=== PATIENT | female | born 1935 | race Caucasian/White ===

== ENCOUNTER 2017-08-07 04:39 | Emergency (ER) | payer MEDICARE ==
[~2017-08-07] VITALS: Ht 172.7 cm; Wt 90.9 kg
[2017-08-07 05:57] LABS: ALBUMIN 4.3 g/dL (3.2-5.0); ALKALINE PHOSPHATASE 170 u/l (38-126); AMYLASE 52 u/l (30-110); ANION GAP 18 (6-22 (CALC)); BILIRUBIN, TOTAL 0.7 mg/dL (0.0-1.4); BUN 14 mg/dL (8-23); BUN/CREATININE RATIO 24 (12-20 (CALC)); CALCIUM 9.2 mg/dL (8.4-10.2); CARBON DIOXIDE 20 mmol/l (22-30); CHLORIDE 102 mmol/l (95-108); CREATININE 0.6 mg/dL (0.5-1.0); GFR > 60 ML/MIN (>=60 (CALC)); GFR FOR AFR.AMER. > 60 ML/MIN (>=60 (CALC)); GLUCOSE 354 mg/dL (82-115); LIPASE 189 u/l (23-300); POTASSIUM 4.6 mmol/l (3.5-5.1); SGOT/AST 32 u/l (9-36); SGPT/ALT 35 u/l (11-66); SODIUM 135 mmol/l (137-146); TOTAL PROTEIN 7.5 g/dL (6.3-8.2)
[2017-08-07 06:01] LABS: ACT PARTIAL THROMBO TIME 26.1 SECONDS (20.0-32.5); INTERNATIONAL NORMALIZED RATIO 0.9 RATIO (0.7-1.3); PROTHROMBIN TIME 10.4 SECONDS (9.0-12.5)
[2017-08-07 06:06] LABS: HEMATOCRIT 42.9 % (37.0-47.0); HEMOGLOBIN 14.8 g/dl (12.0-16.0); IMMATURE GRANULOCYTES 0.4 % (0.0-1.0); MEAN CELL VOLUME 90.7 fL CALC (80.0-100.0); MEAN CORPUSCULAR HGB 31.3 pG CALC (26.0-32.0); MEAN CORPUSCULAR HGB CONC 34.5 g/L CALC (32.0-36.0); NEUT# 5.41 thou/uL (2.00-7.15); RED BLOOD COUNT 4.73 mill/uL (4.20-5.60); RED CELL DISTRI WIDTH 12.4 % (11.5-15.5)
[2017-08-07 06:09] LABS: MYOGLOBIN 65 ng/mL (0 - 62)
[2017-08-07 06:17] LABS: URINE BILIRUBIN - DIPSTICK NEGATIVE (NEGATIVE); URINE BLOOD DIPSTICK NEGATIVE (NEGATIVE); URINE COLOR YELLOW; URINE GLUCOSE - DIPSTICK >=1000 mg/dL (NEGATIVE); URINE KETONE NEGATIVE (NEGATIVE); URINE LEUK ESTERASE NEGATIVE (NEGATIVE); URINE NITRITE - DIPSTICK NEGATIVE (Negative); URINE PH 5.5 (4.5-8.0); URINE PROTEIN - DIPSTICK NEGATIVE (NEG-TRACE); URINE SPECIFIC GRAVITY <=1.005; URINE UROBILINOGEN - DIPSTICK 0.2 E.U./dL (0.2)
[2017-08-07 06:25] LABS: URINE CLARITY CLEAR
[2017-08-07 07:00] VITALS: BP 171/79
== END 2017-08-07 07:00 | disposition left against medical advice (07) ==
LOC: ED 04:39
PROVIDERS: Emergency Medicine
DX: R10.13 Epigastric pain (principal); R42 Dizziness and giddiness; E11.621 Type 2 diabetes mellitus with foot ulcer; E11.65 Type 2 diabetes mellitus with hyperglycemia; I10 Essential (primary) hypertension; R94.31 Abnormal electrocardiogram [ECG] [EKG]; Z91.19 Patient's noncompliance with other medical treatment and regimen; B95.7 Other staphylococcus as the cause of diseases classified elsewhere
CPT/HCPCS: S0164

== ENCOUNTER 2021-02-02 12:06 | Emergency (ER) | payer MEDICARE, OTHER ==
[~2021-02-02] VITALS: Ht 172.7 cm; Wt 86.3 kg
[2021-02-02 13:17] LABS: ALBUMIN 4.1 g/dL (3.2-5.0); ALKALINE PHOSPHATASE 131 u/l (38-126); ANION GAP 13 (6-22 (CALC)); BILIRUBIN, TOTAL 0.7 mg/dL (0.0-1.4); BUN 13 mg/dL (8-23); BUN/CREATININE RATIO 30 (12-20 (CALC)); CARBON DIOXIDE 21 mmol/l (22-30); CHLORIDE 103 mmol/l (95-108); CREATININE 0.4 mg/dL (0.5-1.0); GFR > 60 ML/MIN (>=60 (CALC)); GFR FOR AFR.AMER. > 60 ML/MIN (>=60 (CALC)); POTASSIUM 4.1 mmol/l (3.5-5.1); SGOT/AST 30 u/l (9-36); SODIUM 133 mmol/l (137-146); TOTAL PROTEIN 7.8 g/dL (6.3-8.2)
[2021-02-02 13:28] VITALS: BP 197/95
[2021-02-02 13:31] LABS: HEMATOCRIT 41.9 % (37.0-47.0); HEMOGLOBIN 13.7 g/dl (12.0-16.0); IMMATURE GRANULOCYTES 0.4 % (0.0-5.0); MEAN CELL VOLUME 92.1 fL CALC (80.0-100.0); MEAN CORPUSCULAR HGB 30.1 pG CALC (26.0-32.0); MEAN CORPUSCULAR HGB CONC 32.7 g/dL CAL (32.0-36.0); NEUT# 6.72 thou/uL (2.00-7.15); RED BLOOD COUNT 4.55 mill/uL (4.20-5.60); RED CELL DISTRI WIDTH 13.2 % (11.5-15.5)
== END 2021-02-02 13:29 | disposition short-term general hospital (02) ==
LOC: ED 12:06
PROVIDERS: Emergency Medicine
DX: S00.03XA Contusion of scalp, initial encounter (principal); I16.0 Hypertensive urgency; I69.398 Other sequelae of cerebral infarction; R26.89 Other abnormalities of gait and mobility; E11.9 Type 2 diabetes mellitus without complications; W18.30XA Fall on same level, unspecified, initial encounter; Y93.E2 Activity, laundry; Y92.009 Unspecified place in unspecified non-institutional (private) residence as the place of occurrence of the external cause

== ENCOUNTER 2022-06-03 14:29 | Emergency (ER) | payer MEDICARE, OTHER ==
[2022-06-03] VITALS (9 sets, daily range): BP systolic 123–171; BP diastolic 63–71
[~2022-06-03] VITALS: Ht 172.7 cm; Wt 93.2 kg
[2022-06-03] MEDS ORDERED: CEPHALEXIN500 MG PO (16:31)
[2022-06-04] MEDS ORDERED: CITRATE OF MEGNESIA PO (18:37)
[2022-06-04] MEDS ORDERED: ONDANSETRON4 MG PO (18:37)
== END 2022-06-03 17:59 | disposition home or self-care (01) ==
LOC: ED 14:29
PROC: 0HQ1XZZ Repair Face Skin, External Approach (ICD-10-PCS; principal; 2022-06-03)
DX: S01.81XA Laceration without foreign body of other part of head, initial encounter (principal); E11.9 Type 2 diabetes mellitus without complications; W01.0XXA Fall on same level from slipping, tripping and stumbling without subsequent striking against object, initial encounter; Y92.009 Unspecified place in unspecified non-institutional (private) residence as the place of occurrence of the external cause; Z86.73 Personal history of transient ischemic attack (TIA), and cerebral infarction without residual deficits

== ENCOUNTER 2022-06-04 14:48 | Emergency (ER) | payer MEDICARE, OTHER ==
[~2022-06-04] VITALS: Ht 172.7 cm; Wt 81.8 kg
[~2022-06-04 14:48] MED LIST: CEPHALEXIN500 MG PO
[2022-06-04 15:47] LABS: HEMATOCRIT 36.9 % (37.0-47.0); HEMOGLOBIN 12.4 g/dl (12.0-16.0); IMMATURE GRANULOCYTES 0.1 % (0.0-5.0); MEAN CELL VOLUME 92.3 fL CALC (80.0-100.0); MEAN CORPUSCULAR HGB CONC 33.6 g/dL CAL (32.0-36.0); NEUT# 5.35 thou/uL (2.00-7.15); RED CELL DISTRI WIDTH 13.1 % (11.5-15.5)
[2022-06-04 16:04] LABS: ALBUMIN 3.7 g/dL (3.2-5.0); ALKALINE PHOSPHATASE 99 u/l (38-126); ANION GAP 13 (6-22 (CALC)); BUN 18 mg/dL (8-23); BUN/CREATININE RATIO 25 (12-20 (CALC)); CARBON DIOXIDE 22 mmol/l (22-30); CHLORIDE 98 mmol/l (95-108); CREATININE 0.7 mg/dL (0.5-1.0); GFR FOR AFR.AMER. > 60 ML/MIN (>=60 (CALC)); GFR OTHER RACES > 60 ML/MIN (>=60 (CALC)); LIPASE 36 u/l (23-300); SGOT/AST 29 u/l (9-36); SODIUM 128 mmol/l (137-146); TOTAL PROTEIN 6.5 g/dL (6.3-8.2)
[2022-06-04 16:09] LABS: BILIRUBIN, TOTAL 0.4 mg/dL (0.0-1.4)
[2022-06-04] MEDS ORDERED: ONDANSETRON4 MG PO (18:37)
[2022-06-04] MEDS ORDERED: CITRATE OF MEGNESIA PO (18:37)
[2022-06-04 20:26] VITALS: BP 191/65
== END 2022-06-04 20:26 | disposition home or self-care (01) ==
LOC: ED 14:48
PROVIDERS: Family Medicine
DX: R11.2 Nausea with vomiting, unspecified (principal); K59.00 Constipation, unspecified; E11.9 Type 2 diabetes mellitus without complications; Z86.73 Personal history of transient ischemic attack (TIA), and cerebral infarction without residual deficits

== ENCOUNTER 2022-06-12 18:11 | Observation (INO) | payer MEDICARE, OTHER ==
--- NOTE | 2022-06-11 23:15 | NUR ---
87 y/o female pt received from ER via stretcher accompanied by RN. O/A to unit, pt awake, alert and oriented x3 but [place]. Pt noted to have faded periorbital bruising around R eye and sutures to Rt eyebrow. Pt states she had a fall about a week ago. Pt oriented to room, environment and call system. Pt placed on falls precautions and bed alarm engaged. Will monitor.
[2022-06-12] VITALS (16 sets, daily range): BP systolic 165–222; BP diastolic 60–132
[~2022-06-12] VITALS: Ht 172.7 cm; Wt 82.6 kg
[~2022-06-12 18:11] MED LIST changes: +CITRATE OF MEGNESIA PO; +ONDANSETRON4 MG PO
--- NOTE | 2022-06-12 18:29 | NUR ---
PATIENT STATES SHE IS ONLY ON INSULIN AND TAKES TWO UNIT IN THE MORNING AND TWO UNITS AT NIGHT , DENIES TAKING ANY OTHER MEDICATIONS. PATIENT PRESENT TO ED WITH NAUSEA VOMITING ABDOMINAL CRAMPING VIA EMS WAS GIVEN 4 MG OF ZOFRAN AND SALINE 22G IV LEFT HAND WAS PLACED BY EMS
--- NOTE | 2022-06-12 18:45 | NUR ---
PATIENT BLOOD SUGAR 162 , ER md MADE AWARE , . dOCTOR STATES TO HOLD OFF ON THAT INSULIN AND WAIT FOR THE BLOOD GLUCOSE FROM THE LAB
[2022-06-12 19:05] LABS: HEMATOCRIT 39.9 % (37.0-47.0); HEMOGLOBIN 13.7 g/dl (12.0-16.0); IMMATURE GRANULOCYTES 0.3 % (0.0-5.0); MEAN CELL VOLUME 89.7 fL CALC (80.0-100.0); MEAN CORPUSCULAR HGB 30.8 pG CALC (26.0-32.0); MEAN CORPUSCULAR HGB CONC 34.3 g/dL CAL (32.0-36.0); NEUT# 4.66 thou/uL (2.00-7.15); RED BLOOD COUNT 4.45 mill/uL (4.20-5.60); RED CELL DISTRI WIDTH 12.8 % (11.5-15.5)
[2022-06-12 19:13] LABS: LIPASE 73 u/l (23-300)
[2022-06-12 19:30] LABS: MYOGLOBIN 63 ng/mL (0 - 62)
[2022-06-12 19:54] LABS: ALBUMIN 4.1 g/dL (3.2-5.0); ALKALINE PHOSPHATASE 109 u/l (38-126); ANION GAP 15 (6-22 (CALC)); BUN 10 mg/dL (8-23); BUN/CREATININE RATIO 19 (12-20 (CALC)); CARBON DIOXIDE 20 mmol/l (22-30); CHLORIDE 101 mmol/l (95-108); CREATININE 0.5 mg/dL (0.5-1.0); GFR FOR AFR.AMER. > 60 ML/MIN (>=60 (CALC)); GFR OTHER RACES > 60 ML/MIN (>=60 (CALC)); POTASSIUM 3.5 mmol/l (3.5-5.1); SGOT/AST 37 u/l (9-36); SODIUM 133 mmol/l (137-146); TOTAL PROTEIN 7.2 g/dL (6.3-8.2)
[2022-06-12 20:01] LABS: BILIRUBIN, TOTAL 0.6 mg/dL (0.0-1.4)
[2022-06-12 21:11] LABS: URINE BILIRUBIN - DIPSTICK NEGATIVE (NEGATIVE); URINE BLOOD DIPSTICK NEGATIVE (NEGATIVE); URINE COLOR YELLOW; URINE GLUCOSE - DIPSTICK NEGATIVE (NEGATIVE); URINE KETONE TRACE mg/dL (NEGATIVE); URINE LEUK ESTERASE NEGATIVE (NEGATIVE); URINE PH 6.5 (4.5-8.0); URINE PROTEIN - DIPSTICK NEGATIVE (NEG-TRACE); URINE UROBILINOGEN - DIPSTICK 0.2 E.U./dL (0.2)
[2022-06-12 21:22] LABS: URINE NITRITE - DIPSTICK POSITIVE (Negative)
[2022-06-12 21:27] LABS: URINE BACTERIA MANY hpf; URINE SQUAMOUS EPITHELIAL CELL FEW EPI/hpf (0-FEW)
--- NOTE | 2022-06-12 22:55 | NUR ---
PT ADMITTED TO RM 271, REPORT CALLED TO STEVE CALVO
--- NOTE | 2022-06-12 22:58 | NUR ---
Report received from Sheri WILSON IN ED.
--- NOTE | 2022-06-13 01:59 | NUR ---
Pt appears to be resting. No complaints. No apparent distress. Safety precautions in place.
[2022-06-13 04:24] VITALS: BP 155/50
[2022-06-13 05:46] LABS: IMMATURE GRANULOCYTES 0.2 % (0.0-5.0); MEAN CELL VOLUME 90.8 fL CALC (80.0-100.0); MEAN CORPUSCULAR HGB 31.3 pG CALC (26.0-32.0); MEAN CORPUSCULAR HGB CONC 34.4 g/dL CAL (32.0-36.0); NEUT# 3.58 thou/uL (2.00-7.15); RED BLOOD COUNT 3.71 mill/uL (4.20-5.60); RED CELL DISTRI WIDTH 12.9 % (11.5-15.5)
[2022-06-13 05:47] LABS: HEMATOCRIT 33.7 % (37.0-47.0); HEMOGLOBIN 11.6 g/dl (12.0-16.0)
[2022-06-13 05:59] LABS: ALKALINE PHOSPHATASE 74 u/l (38-126); ANION GAP 11 (6-22 (CALC)); BILIRUBIN, TOTAL 0.5 mg/dL (0.0-1.4); BUN 8 mg/dL (8-23); BUN/CREATININE RATIO 15 (12-20 (CALC)); CARBON DIOXIDE 24 mmol/l (22-30); CHLORIDE 105 mmol/l (95-108); CREATININE 0.6 mg/dL (0.5-1.0); GFR FOR AFR.AMER. > 60 ML/MIN (>=60 (CALC)); GFR OTHER RACES > 60 ML/MIN (>=60 (CALC)); MAGNESIUM 1.8 mg/dL (1.6-2.3); POTASSIUM 3.5 mmol/l (3.5-5.1); SGOT/AST 32 u/l (9-36); SODIUM 135 mmol/l (137-146)
[2022-06-13 06:00] LABS: ALBUMIN 2.9 g/dL (3.2-5.0); TOTAL PROTEIN 5.6 g/dL (6.3-8.2)
[2022-06-13 06:45] VITALS: BP 160/56
[2022-06-13 10:36] VITALS: BP 166/49
[2022-06-13 14:25] VITALS: BP 168/54
--- NOTE | 2022-06-13 19:00 | NUR ---
Pt received in bed. Awake, alert. No apparent distress noted. Will monitor and maintain safety.
[2022-06-13 19:14] VITALS: BP 173/44
--- NOTE | 2022-06-13 21:15 | NUR ---
HS meds given. Pt without complaints. Safety precautions in place.
[2022-06-14] VITALS (7 sets, daily range): BP systolic 157–189; BP diastolic 49–62
--- NOTE | 2022-06-14 02:02 | NUR ---
Pt asleep at intervals. No noted distress. Safety precautions in place
[2022-06-14 05:01] LABS: HEMATOCRIT 32.8 % (37.0-47.0); HEMOGLOBIN 11.3 g/dl (12.0-16.0); IMMATURE GRANULOCYTES 0.2 % (0.0-5.0); MEAN CELL VOLUME 90.9 fL CALC (80.0-100.0); MEAN CORPUSCULAR HGB 31.3 pG CALC (26.0-32.0); MEAN CORPUSCULAR HGB CONC 34.5 g/dL CAL (32.0-36.0); NEUT# 3.79 thou/uL (2.00-7.15); RED BLOOD COUNT 3.61 mill/uL (4.20-5.60); RED CELL DISTRI WIDTH 12.8 % (11.5-15.5)
[2022-06-14 05:23] LABS: ANION GAP 11 (6-22 (CALC)); BUN 10 mg/dL (8-23); BUN/CREATININE RATIO 18 (12-20 (CALC)); CARBON DIOXIDE 22 mmol/l (22-30); CHLORIDE 105 mmol/l (95-108); CREATININE 0.5 mg/dL (0.5-1.0); GFR FOR AFR.AMER. > 60 ML/MIN (>=60 (CALC)); GFR OTHER RACES > 60 ML/MIN (>=60 (CALC)); POTASSIUM 3.3 mmol/l (3.5-5.1); SODIUM 136 mmol/l (137-146)
--- NOTE | 2022-06-14 06:11 | NUR ---
No noted complaints over night. Safety precautions maintained.
--- NOTE | 2022-06-14 07:03 | NUR ---
Dr. Israel made aware of SBPs in 170s, 180s. New orders noted.
[2022-06-14] MEDS ORDERED: LOSARTAN POTAS100 MG PO (10:38)
[2022-06-14] MEDS ORDERED: HUMALOG KW100 UNIT/M SC (15:23)
[2022-06-15 04:00] VITALS: BP 173/54
[2022-06-15 04:01] VITALS: BP 173/54
[2022-06-15 05:39] LABS: ANION GAP 12 (6-22 (CALC)); BUN 10 mg/dL (8-23); BUN/CREATININE RATIO 19 (12-20 (CALC)); CARBON DIOXIDE 22 mmol/l (22-30); CHLORIDE 106 mmol/l (95-108); CREATININE 0.5 mg/dL (0.5-1.0); GFR FOR AFR.AMER. > 60 ML/MIN (>=60 (CALC)); GFR OTHER RACES > 60 ML/MIN (>=60 (CALC)); POTASSIUM 3.3 mmol/l (3.5-5.1); SODIUM 137 mmol/l (137-146)
[2022-06-15] MEDS ORDERED: LEVOFLOXACIN250 M1 PO (13:55)
[2022-06-15] MEDS ORDERED: LOSARTAN POTASS50 MG PO (14:05)
== END 2022-06-15 18:24 ==
LOC: ED 18:11 → MS2 21:48
PROVIDERS: Family Medicine; Nurse Practitioner; ADMIT Internal Medicine; ATTEND Internal Medicine
PROC: 0T9B70Z Drainage of Bladder with Drainage Device, Via Natural or Artificial Opening (ICD-10-PCS; principal; 2022-06-15)
DX: U07.1 COVID-19 (principal); J12.82 Pneumonia due to coronavirus disease 2019; N39.0 Urinary tract infection, site not specified; R33.9 Retention of urine, unspecified; I10 Essential (primary) hypertension; E11.9 Type 2 diabetes mellitus without complications; E87.6 Hypokalemia; K59.09 Other constipation; S01.81XD Laceration without foreign body of other part of head, subsequent encounter; W19.XXXD Unspecified fall, subsequent encounter; B95.7 Other staphylococcus as the cause of diseases classified elsewhere; T46.5X6A Underdosing of other antihypertensive drugs, initial encounter; Z28.310 Unvaccinated for COVID-19; Z91.81 History of falling; Z86.73 Personal history of transient ischemic attack (TIA), and cerebral infarction without residual deficits; Z60.2 Problems related to living alone; Z91.128 Patient's intentional underdosing of medication regimen for other reason; Z87.440 Personal history of urinary (tract) infections
CPT/HCPCS: J1650

== ENCOUNTER 2023-06-07 12:05 | Emergency (ER) | payer MEDICARE, OTHER ==
[~2023-06-07] VITALS: Ht 172.7 cm; Wt 86.1 kg
[~2023-06-07 12:05] MED LIST changes: +HUMALOG KW100 UNIT/M SC; +KEFLEX500 MG PO; +LEVOFLOXACIN250 M1 PO; +LOSARTAN POTAS100 MG PO; +LOSARTAN POTASS50 MG PO
[2023-06-07 12:42] VITALS: BP 168/89
== END 2023-06-07 12:52 | disposition home or self-care (01) ==
LOC: ED 12:05
DX: S01.112D Laceration without foreign body of left eyelid and periocular area, subsequent encounter (principal); I10 Essential (primary) hypertension; E11.9 Type 2 diabetes mellitus without complications; X58.XXXD Exposure to other specified factors, subsequent encounter; Z86.16 Personal history of COVID-19; Z91.81 History of falling; Z79.4 Long term (current) use of insulin

== ENCOUNTER 2024-02-25 15:23 | Emergency (ER) | payer MEDICARE, OTHER ==
[~2024-02-25] VITALS: Ht 172.7 cm; Wt 80.8 kg
[2024-02-25 15:28] VITALS: BP 234/99
[2024-02-25 16:36] VITALS: BP 212/80
[2024-02-25 17:26] VITALS: BP 126/79
== END 2024-02-25 17:51 | disposition home or self-care (01) ==
LOC: ED 15:23
PROC: 0HQ0XZZ Repair Scalp Skin, External Approach (ICD-10-PCS; principal; 2024-02-25)
DX: S01.01XA Laceration without foreign body of scalp, initial encounter (principal); I10 Essential (primary) hypertension; E11.9 Type 2 diabetes mellitus without complications; W01.0XXA Fall on same level from slipping, tripping and stumbling without subsequent striking against object, initial encounter; Y92.000 Kitchen of unspecified non-institutional (private) residence as the place of occurrence of the external cause; Z91.81 History of falling; Z79.4 Long term (current) use of insulin; Z86.16 Personal history of COVID-19

== ENCOUNTER 2024-03-08 09:59 | Emergency (ER) | payer MEDICARE, OTHER ==
[~2024-03-08] VITALS: Ht 172.7 cm; Wt 87.0 kg
[2024-03-08 10:12] VITALS: BP 190/73
[2024-03-08 10:13] VITALS: BP 184/72
[2024-03-08 10:16] VITALS: BP 172/110
[2024-03-08 10:31] VITALS: BP 171/78
[2024-03-08 10:46] VITALS: BP 172/124
[2024-03-08 10:55] VITALS: BP 172/124
== END 2024-03-08 11:32 | disposition home or self-care (01) ==
LOC: ED 09:59
DX: S01.01XD Laceration without foreign body of scalp, subsequent encounter (principal); X58.XXXD Exposure to other specified factors, subsequent encounter; I10 Essential (primary) hypertension; E11.9 Type 2 diabetes mellitus without complications; Z86.16 Personal history of COVID-19; Z91.81 History of falling; Z79.4 Long term (current) use of insulin

== ENCOUNTER 2024-10-10 09:50 | Emergency (ER) | payer MEDICARE, OTHER ==
[~2024-10-10] VITALS: Ht 172.7 cm; Wt 84.0 kg
[2024-10-10 10:17] VITALS: BP 194/80
[2024-10-10 12:07] LABS: URINE BILIRUBIN - DIPSTICK Negative (NEGATIVE); URINE BLOOD DIPSTICK Negative (NEGATIVE); URINE GLUCOSE - DIPSTICK 100 mg/dL (NEGATIVE); URINE KETONE Negative (NEGATIVE); URINE PROTEIN - DIPSTICK Trace mg/dL (NEG-TRACE); URINE SPECIFIC GRAVITY 1.015; URINE UROBILINOGEN - DIPSTICK 0.2 E.U./dL (0.2)
[2024-10-10 12:08] LABS: URINE COLOR Yellow; URINE LEUK ESTERASE Small (NEGATIVE); URINE NITRITE - DIPSTICK Positive (Negative)
[2024-10-10 12:13] LABS: URINE BACTERIA MODERATE hpf; URINE RBC 0-2 RBC/hpf (0-5); URINE SQUAMOUS EPITHELIAL CELL MODERATE EPI/hpf (0-FEW)
[2024-10-10 12:30] VITALS: BP 135/113
[2024-10-10] MEDS ORDERED: MUPIROCIN21 TOP (12:31)
[2024-10-10] MEDS ORDERED: MACROBID100 M1 PO (12:31)
[2024-10-10 12:35] VITALS: BP 135/113
[2024-10-12] MEDS ORDERED: BACTRIM DS1 TAB PO (10:13)
== END 2024-10-10 12:45 | disposition home or self-care (01) ==
LOC: ED 09:50
PROVIDERS: Emergency Medicine
DX: L03.114 Cellulitis of left upper limb (principal); S50.812A Abrasion of left forearm, initial encounter; N39.0 Urinary tract infection, site not specified; B96.1 Klebsiella pneumoniae [K. pneumoniae] as the cause of diseases classified elsewhere; I10 Essential (primary) hypertension; E11.9 Type 2 diabetes mellitus without complications; W22.09XA Striking against other stationary object, initial encounter; Z91.81 History of falling; Z79.4 Long term (current) use of insulin